=== PATIENT | female | born 1935 | race Two or more races ===

== ENCOUNTER 2018-07-31 14:37 | Inpatient (IN) | payer OTHER, MEDICAID ==
[~2018-07-31] VITALS: Ht 152.4 cm; Wt 61.5 kg
[2018-07-31] MEDS ORDERED: SODIUM CHLORIDE 0.9% 500 ML IVB ONE (16:33)
[2018-07-31] MEDS ORDERED: ONDANSETRON HCL 4 MG/2 ML VIAL IV ONE (16:45)
[2018-07-31] MEDS ORDERED: MORPHINE SULFATE 4 MG/ML SYR/VIAL IV ONE (16:45)
[2018-07-31 18:01] LABS: Basophils # (auto) 0 uL; Basophils % (auto) 0.6 % (0.0-2.0); Eosinophils # (auto) 0.1 uL; Eosinophils % (auto) 1.2 % (0.0-7.0); Lymphocytes # (auto) 1.3 uL; Lymphocytes % (auto) 18.3 % (10.0-50.0); Mean Corpuscular Hemoglobin 27.6 pg (28.0-32.0); Mean Corpuscular Hgb Conc. 33.2 g/dL (32.0-36.0); Mean Corpuscular Volume 83.1 fL (80.0-100.0); Monocytes # (auto) 0.7 uL; Neutrophils # (auto) 5.2 uL; Neutrophils % (auto) 70.9 % (37.0-80.0); Nucleated Red Blood Cells % 0.1 %; Platelet Count (auto) 203 10^3/uL (140-450); Red Blood Cells 4.34 10^6/uL (4.0-5.20); Red Cell Distribution Width 13.7 % (11.8-14.3); White Blood Cell 7.4 10^3/uL (4.4-10.8)
[2018-07-31 18:02] LABS: INR 0.99 (0.9-1.15); Partial Thromboplastin Time 27.8 sec (23.78-33.04); Prothrombin Time 10.6 sec (9.27-12.13)
[2018-07-31 18:20] LABS: Albumin 3.5 g/dL (3.4-5.0); BUN/Creatinine Ratio 22.1; Bilirubin, Total 0.4 mg/dL (0.2-1.0); Calcium 8.8 mg/dL (8.5-10.1); Potassium 3.8 mmol/L (3.5-5.1); Total Protein 7.9 g/dL (6.4-8.2)
[2018-07-31 19:01] LABS: Urine Bacteria FEW /hpf (None Seen); Urine Blood 1+ /uL (Negative); Urine Specific Gravity 1.002 (1.001-1.035); Urine WBC 20 /hpf (0 - 5)
[2018-08-01] MEDS ORDERED: ACETAMINOPHEN 500 MG TAB PO PRN (02:00)
[2018-08-01] MEDS ORDERED: ONDANSETRON HCL 4 MG/2 ML VIAL IV PRN (02:00)
[2018-08-01] MEDS ORDERED: MORPHINE SULF INJ 2 MG/ML SYRINGE 1ML IV PRN (02:00)
[2018-08-01] MEDS ORDERED: HYDROcodone-ACET 5/325MG TAB PO PRN (02:00)
[2018-08-01] MEDS: SODIUM CHLORIDE 0.9% 1,000 ML IV SCH ×2 (02:15→18:55)
[2018-08-01] MEDS ORDERED: DEXTROSE (50%) 50ML SYRG IV PRN (03:00)
[2018-08-01] MEDS ORDERED: LEVOTHYROXINE SODIUM 50 MCG TAB PO SCH (07:00)
[2018-08-01] MEDS: InsuLIN REG 1unit/0.01ml Soln (100units/ml) SC SCH ×4 (07:00→21:58)
[2018-08-01] MEDS: LEVOTHYROXINE SODIUM 25 MCG TAB PO SCH (08:36)
[2018-08-01] MEDS: LEVOTHYROXINE SODIUM 100 MCG TAB PO SCH (08:36)
[2018-08-01] MEDS: ACCU-CHEK COMFORT CURVE STRIP VI SCH ×4 (08:53→21:58)
[2018-08-01] MEDS: cefTRIAXone 1GM/10ml IVPUSH 10 ML IV SCH (08:53)
[2018-08-01 16:56] VITALS: BP 136/72
[2018-08-01] MEDS ORDERED: PRE5T PO (17:47)
[2018-08-01] MEDS ORDERED: ASPI81TA27 PO (17:47)
[2018-08-01] MEDS ORDERED: ATOR20TA50 PO (17:47)
[2018-08-01] MEDS ORDERED: METF-370 PO (17:47)
[2018-08-01] MEDS ORDERED: IBUP800T24 PO (17:47)
[2018-08-01] MEDS ORDERED: DONE5TAB31 PO (17:47)
[2018-08-01] MEDS ORDERED: GABA100C9 PO (17:47)
[2018-08-01 20:00] VITALS: BP 143/75
[2018-08-01 22:00] VITALS: BP 143/75
[2018-08-01] MEDS ORDERED: ATORVASTATIN 20 MG TAB PO SCH (22:00)
[2018-08-02 05:30] VITALS: BP 151/80
[2018-08-02 05:57] LABS: Basophils # (auto) 0 uL; Basophils % (auto) 0.6 % (0.0-2.0); Eosinophils # (auto) 0.2 uL; Eosinophils % (auto) 2.9 % (0.0-7.0); Hematocrit 34.5 % (36.0-46.0); Hemoglobin 11.7 g/dL (12.2-16.2); Lymphocytes # (auto) 1.8 uL; Mean Corpuscular Hemoglobin 28.1 pg (28.0-32.0); Mean Corpuscular Volume 82.8 fL (80.0-100.0); Monocytes # (auto) 0.7 uL; Monocytes % (auto) 11.1 % (0.0-12.0); Neutrophils # (auto) 3.5 uL; Neutrophils % (auto) 56.4 % (37.0-80.0); Nucleated Red Blood Cells % 0.1 %; Platelet Count (auto) 189 10^3/uL (140-450); Red Blood Cells 4.16 10^6/uL (4.0-5.20); Red Cell Distribution Width 13.6 % (11.8-14.3); White Blood Cell 6.2 10^3/uL (4.4-10.8)
[2018-08-02] MEDS: LEVOTHYROXINE SODIUM 25 MCG TAB PO SCH (06:02)
[2018-08-02] MEDS: ACCU-CHEK COMFORT CURVE STRIP VI SCH ×2 (06:02→12:30)
[2018-08-02] MEDS: LEVOTHYROXINE SODIUM 100 MCG TAB PO SCH (06:02)
[2018-08-02] MEDS: InsuLIN REG 1unit/0.01ml Soln (100units/ml) SC SCH ×2 (06:03→12:00)
[2018-08-02 06:29] LABS: BUN/Creatinine Ratio 17.6; Calcium 8.6 mg/dL (8.5-10.1); Potassium 3.8 mmol/L (3.5-5.1)
[2018-08-02 09:00] VITALS: BP 160/76
[2018-08-02] MEDS: cefTRIAXone 1GM/10ml IVPUSH 10 ML IV SCH (09:20)
[2018-08-02] MEDS: SODIUM CHLORIDE 0.9% 1,000 ML IV SCH (11:35)
[2018-08-02] MEDS ORDERED: MANNITOL FTV 25% 12.5 GM/50 ML 50 ML IV ONE (12:00)
[2018-08-02] MEDS ORDERED: TAMSULOSIN HYDROCHLORIDE 0.4 MG CAP PO ONE (12:00)
[2018-08-02 12:44] VITALS: BP 158/78
== END 2018-08-02 18:38 | disposition home health service (06) | DRG 690 ==
LOC: ER 14:41 → OVERFLOW 14:42 → WEST WING 08-01 13:34
PROVIDERS: ADMIT Nurse Practitioner Family; ATTEND Internal Medicine
DX: N13.6 Pyonephrosis (principal); I25.10 Atherosclerotic heart disease of native coronary artery without angina pectoris; E11.9 Type 2 diabetes mellitus without complications; E78.5 Hyperlipidemia, unspecified; G30.9 Alzheimer's disease, unspecified; E03.9 Hypothyroidism, unspecified; M79.601 Pain in right arm; E66.9 Obesity, unspecified; F02.80 Dementia in other diseases classified elsewhere, unspecified severity, without behavioral disturbance, psychotic disturbance, mood disturbance, and anxiety; I10 Essential (primary) hypertension; K59.00 Constipation, unspecified; R32 Unspecified urinary incontinence; Z90.49 Acquired absence of other specified parts of digestive tract; Z90.710 Acquired absence of both cervix and uterus; Z88.0 Allergy status to penicillin; Z68.26 Body mass index [BMI] 26.0-26.9, adult; R10.9 Unspecified abdominal pain
CPT/HCPCS: 36415; 73030; 73060; 73080; 74176; 80048; 80053; 81001; 82150; 82962; 83036; 83690; 85025; 85610; 85730; 87086; 87088; 87186; 93005; 94761; 96361; 96374; 96375; G0378; J0696; J1815; J2405

== ENCOUNTER 2018-11-24 11:39 | Emergency (ER) | payer OTHER, MEDICAID ==
[~2018-11-24] VITALS: Ht 162.6 cm; Wt 54.4 kg
[~2018-11-24 11:39] MED LIST: ASPI81TA27 PO; ATOR20TA50 PO; DONE5TAB31 PO; GABA100C9 PO; IBUP800T24 PO; METF-370 PO; PRE5T PO
[2018-11-24] MEDS ORDERED: traMADol HCL 50 MG TAB PO ONE (12:15)
[2018-11-24 14:30] VITALS: BP 121/72
== END 2018-11-24 17:25 | disposition home or self-care (01) ==
LOC: EDBD 11:39 → ER 11:39
DX: S09.8XXA Other specified injuries of head, initial encounter (principal); M54.5 Low back pain; E11.9 Type 2 diabetes mellitus without complications; E78.5 Hyperlipidemia, unspecified; I10 Essential (primary) hypertension; I25.2 Old myocardial infarction; E07.9 Disorder of thyroid, unspecified; I25.10 Atherosclerotic heart disease of native coronary artery without angina pectoris; Z90.49 Acquired absence of other specified parts of digestive tract; Z90.710 Acquired absence of both cervix and uterus; Z88.0 Allergy status to penicillin; Z79.899 Other long term (current) drug therapy; W05.0XXA Fall from non-moving wheelchair, initial encounter; Y93.89 Activity, other specified; Y92.098 Other place in other non-institutional residence as the place of occurrence of the external cause; Y99.8 Other external cause status
CPT/HCPCS: 70450; 72131